=== PATIENT | female | born 1965 | race Caucasian/White ===

== ENCOUNTER 2016-05-14 10:41 | Observation (INO) | payer OTHER ==
[~2016-05-14] VITALS: Ht 157.5 cm; Wt 91.6 kg
[2016-05-14] MEDS ORDERED: NAPR-1169 PO (11:00)
[2016-05-14] MEDS ORDERED: CYAN500T PO (11:01)
[2016-05-14] MEDS ORDERED: ASCA500 PO (11:01)
[2016-05-14] MEDS ORDERED: ASPIRIN 324 MG CHEW PO STA (11:07)
[2016-05-14 11:20] LABS: BASO % 0.3 %; BASO ABS # 0.02 K/uL (0-0.2); COMPLETE YES; EOS % 2.7 %; IG% 0.5 %; LYMPH % 23.5 %; LYMPH ABS # 1.46 K/uL (1.2-3.4); MEAN CELL VOLUME 89.8 fL (80-100); MEAN CORPUSCULAR HEMOGLOBIN 29.9 pg (25-34); MEAN CORPUSCULAR HGB CONC 33.3 g/dl (32-36); MEAN PLATELET VOLUME 9.8 fL (7.4-10.4); MONO % 7.6 %; NEUT % 65.4 %; PLATELET COUNT 302 K/uL (130-400); RED BLOOD COUNT 4.79 M/uL (4.2-5.4)
[2016-05-14 11:28] LABS: BLOOD UREA NITROGEN 15 mg/dl (7-18); CALCIUM 9.1 mg/dl (8.5-10.1); CARBON DIOXIDE 29 mmol/L (21-32); CHLORIDE 105 mmol/L (98-107); CREATININE 0.74 mg/dl (0.60-1.20); GLUCOSE 129 mg/dl (70-99); POTASSIUM 3.6 mmol/L (3.5-5.1); SODIUM 143 mmol/L (136-145)
[2016-05-14 11:32] LABS: PARTIAL THROMBOPLASTIN RATIO 1.1; PROTHROMBIN TIME (PATIENT) 10.4 SECONDS (9.0-12.0)
--- NOTE | 2016-05-14 11:50 | DIAGNOSTIC IMAGING REPORT ---
CHEST 2 VIEWS ROUTINE HISTORY: exertional dyspnea COMPARISON: None. FINDINGS: The lungs are clear. Cardiac silhouette is normal in size. No pleural effusions. No pneumothorax. IMPRESSION: No acute process. Electronically signed by: Kun Tyson M.D. 05/14/2016 11:48 AM Dictated Date/Time: 05/14/2016 11:45 AM
[2016-05-14] MEDS ORDERED: OPTIRAY 320 IV PRN (12:00)
--- NOTE | 2016-05-14 12:41 | DIAGNOSTIC IMAGING REPORT ---
CHEST CTA for PULMONARY ARTERIES CT DOSE: 510.24 mGy.cm HISTORY: Atypical chest pain and exertional dyspnea. TECHNIQUE: Multiaxial CT images of the chest were performed following the intravenous administration of contrast to evaluate the pulmonary arteries. Maximal intensity projection images were also obtained. COMPARISON STUDY: Chest 05/14/2016 FINDINGS: There is a normal caliber thoracic aorta with no evidence for dissection. There is no evidence for pulmonary embolus. Trace right pleural effusion.. No pneumothorax. The liver and spleen are unremarkable. No mediastinal or hilar lymphadenopathy. The central airways are patent. There is a 7 mm slightly lobular nodule within the right lower lobe on image 7. This is difficult to characterize due to its small size but may contain fat. There is a 3 mm hypodense nodule within the left thyroid lobe. IMPRESSION: 1. No evidence for pulmonary embolus. 2. Trace right pleural effusion. 3. A 7 mm lobular nodule within the right lower lobe. This may contain a small amount of fat but is difficult to characterize due to its small size. Therefore, this could represent a benign hamartoma. However, recommend follow-up according to the chart below. Please refer to below summary of Fleischner criteria recommendations for follow-up of incidental CT nodules (Jahaira Garcia, Guidelines for management of small pulmonary nodules detected on CT scans: A statement from the Fleischner Society, Radiology 237: [phone].) Low Risk Patient: Minimal or no smoking or other known risk factors for malignancy <=4 mm: No follow-up needed. >4-6 mm: Initial follow-up CT at 12 months; if unchanged, no further follow-up. >6-8 mm: Initial follow-up CT at 6-12 months then at 18-24 months if no change. >8 mm: Follow-up CT at \R\3, 9, 24 months, or PET and/or biopsy. High Risk Patient: History of smoking or other known risk factors <=4 mm: Follow-up at 12 months; if unchanged, no further follow-up. >4-6 mm: Initial follow-up CT at 6-12 months then at 18-24 months if no change. >6-8 mm: Initial follow-up CT at 3-6 months then at 9-12 and 24 months if no change. >8 mm: Same as low risk patient. Note: Nodule size measured as average of length and width. Ground glass or partly solid nodules may require longer follow-up to exclude indolent adenocarcinoma. Electronically signed by: Kun Tyson M.D. 05/14/2016 12:39 PM Dictated Date/Time: 05/14/2016 12:26 PM
--- NOTE | 2016-05-14 12:53 | EMERGENCY ROOM VISIT NOTE ---
History Report prepared by Woodrow: Liane Delgado Under the Supervision of: Dr. Anthony Navas M.D. First contact with patient: 11:02 Chief Complaint: CHEST PAIN Stated Complaint: CHEST PAIN Nursing Triage Summary: having burning in chest. started on . denies any shortness of breath at this time. denies radiation of the pain History of Present Illness The patient is a 50 year old female who presents to the Emergency Room with complaints of intermittent chest pain for the past 3 days. She was doing a lot of heavy lifting outside 3 days ago and started to have burning chest pain. She has continued to have burning in her chest since then but notes her pain to be worse with exertion. She rates her pain as a 6/10 in severity. The patient was also experiencing some shortness of breath. She has never had a stress test. She called a Tele-nurse and was advised to come to the ED for further evaluation. Source of History: patient Onset: 3 days ago Position: chest Symptom Intensity: 6/10 Quality: burning Timing: intermittent Modifying Factors (Worsening): exertion Associated Symptoms: + SOB Review of Systems See HPI for pertinent positives & negatives. A total of 10 systems reviewed and were otherwise negative. Past Medical & Surgical Medical Problems: (1) Chest pain (2) Costochondritis Surgical Problems: (1) History of removal of ovarian cyst (2) History of tonsillectomy and adenoidectomy Family History FH: heart disease Social History Smoking Status: Never Smoker Smokeless Tobacco Use: No Alcohol Use: none Housing Status: lives with family Current/Historical Medications Scheduled Ascorbic Acid (Vitamin C), 500 MG PO DAILY Cyanocobalamin (Vitamin B-12), 500 MCG PO DAILY Scheduled PRN Naproxen (Naprosyn), 500 MG PO BID PRN for PRN Allergies Coded Allergies: Sulfa Drugs (Verified Allergy, Intermediate, RASH, 05/14/16) Lanolin (Unverified Allergy, Unknown, UNKNOWN, 05/14/16) Physical Exam Vital Signs Date Time Temp Pulse Resp B/P Pulse Ox O2 Delivery O2 Flow Rate FiO2 05/14/16 14:21 82 24 142/85 98 Room Air 05/14/16 12:29 74 18 152/81 98 05/14/16 10:58 99 05/14/16 10:51 98 Room Air 05/14/16 10:50 96 Room Air 05/14/16 10:43 36.8 101 18 157/95 96 Room Air Physical Exam CONSTITUTIONAL: The patient is mildly anxious appearing. HEENT: No icterus, moist mucous membranes NECK: No meningismus, trachea is midline. CARDIOVASCULAR: Regular rate, normal perfusion RESPIRATORY: Unlabored breathing. Clear to auscultation. GASTROINTESTINAL: Non-tender GENITOURINARY: No flank tenderness MUSCULOSKELETAL: Full range of motion NEUROLOGIC: No acute gross focal deficits. PSYCHIATRIC: Normal affect SKIN: Normal for ethnicity. Medical Decision & Procedures ER Provider Diagnostic Interpretation: Radiology results as stated below per my review and radiologist interpretation. CHEST 2 VIEWS ROUTINE HISTORY: exertional dyspnea COMPARISON: None. FINDINGS: The lungs are clear. Cardiac silhouette is normal in size. No pleural effusions. No pneumothorax. IMPRESSION: No acute process. Electronically signed by: Kun Tyson M.D. 05/14/2016 11:48 AM Dictated Date/Time: 05/14/2016 11:45 AM CHEST CTA for PULMONARY ARTERIES CT DOSE: 510.24 mGy.cm HISTORY: Atypical chest pain and exertional dyspnea. TECHNIQUE: Multiaxial CT images of the chest were performed following the intravenous administration of contrast to evaluate the pulmonary arteries. Maximal intensity projection images were also obtained. COMPARISON STUDY: Chest 05/14/2016 FINDINGS: There is a normal caliber thoracic aorta with no evidence for dissection. There is no evidence for pulmonary embolus. Trace right pleural effusion.. No pneumothorax. The liver and spleen are unremarkable. No mediastinal or hilar lymphadenopathy. The central airways are patent. There is a 7 mm slightly lobular nodule within the right lower lobe on image 7. This is difficult to characterize due to its small size but may contain fat. There is a 3 mm hypodense nodule within the left thyroid lobe. IMPRESSION: 1. No evidence for pulmonary embolus. 2. Trace right pleural effusion. 3. A 7 mm lobular nodule within the right lower lobe. This may contain a small amount of fat but is difficult to characterize due to its small size. Therefore, this could represent a benign hamartoma. However, recommend follow-up according to the chart below. Please refer to below summary of Fleischner criteria recommendations for follow-up of incidental CT nodules (Jahaira Garcia, Guidelines for management of small pulmonary nodules detected on CT scans: A statement from the Fleischner Society, Radiology 237: [phone].) Low Risk Patient: Minimal or no smoking or other known risk factors for malignancy <=4 mm: No follow-up needed. >4-6 mm: Initial follow-up CT at 12 months; if unchanged, no further follow-up. >6-8 mm: Initial follow-up CT at 6-12 months then at 18-24 months if no change. >8 mm: Follow-up CT at \R\3, 9, 24 months, or PET and/or biopsy. High Risk Patient: History of smoking or other known risk factors <=4 mm: Follow-up at 12 months; if unchanged, no further follow-up. >4-6 mm: Initial follow-up CT at 6-12 months then at 18-24 months if no change. >6-8 mm: Initial follow-up CT at 3-6 months then at 9-12 and 24 months if no change. >8 mm: Same as low risk patient. Note: Nodule size measured as average of length and width. Ground glass or partly solid nodules may require longer follow-up to exclude indolent adenocarcinoma. Electronically signed by: Kun Tyson M.D. 05/14/2016 12:39 PM Laboratory Results 05/14/16 10:55 Red Blood Count 4.79, Mean Corpuscular Volume 89.8, Mean Corpuscular Hemoglobin 29.9, Mean Corpuscular Hemoglobin Concent 33.3, Mean Platelet Volume 9.8, Neutrophils (%) (Auto) 65.4, Lymphocytes (%) (Auto) 23.5, Monocytes (%) (Auto) 7.6, Eosinophils (%) (Auto) 2.7, Basophils (%) (Auto) 0.3, Neutrophils # (Auto) 4.05, Lymphocytes # (Auto) 1.46, Monocytes # (Auto) 0.47, Eosinophils # (Auto) 0.17, Basophils # (Auto) 0.02 05/14/16 10:55 Test 05/14/16 10:55 White Blood Count 6.20 K/uL (4.8-10.8) Red Blood Count 4.79 M/uL (4.2-5.4) Hemoglobin 14.3 g/dL (12.0-16.0) Hematocrit 43.0 % (37-47) Mean Corpuscular Volume 89.8 fL (80-100) Mean Corpuscular Hemoglobin 29.9 pg (25-34) Mean Corpuscular Hemoglobin Concent 33.3 g/dl (32-36) Platelet Count 302 K/uL (130-400) Mean Platelet Volume 9.8 fL (7.4-10.4) Neutrophils (%) (Auto) 65.4 % Lymphocytes (%) (Auto) 23.5 % Monocytes (%) (Auto) 7.6 % Eosinophils (%) (Auto) 2.7 % Basophils (%) (Auto) 0.3 % Neutrophils # (Auto) 4.05 K/uL (1.4-6.5) Lymphocytes # (Auto) 1.46 K/uL (1.2-3.4) Monocytes # (Auto) 0.47 K/uL (0.11-0.59) Eosinophils # (Auto) 0.17 K/uL (0-0.5) Basophils # (Auto) 0.02 K/uL (0-0.2) RDW Standard Deviation 46.1 fL (36.4-46.3) RDW Coefficient of Variation 14.1 % (11.5-14.5) Immature Granulocyte % (Auto) 0.5 % Immature Granulocyte # (Auto) 0.03 K/uL (0.00-0.02) Prothrombin Time 10.4 SECONDS (9.0-12.0) Prothromb Time International Ratio 1.0 (0.9-1.1) Activated Partial Thromboplast Time 28.6 SECONDS (21.0-31.0) Partial Thromboplastin Ratio 1.1 D-Dimer 1370 ug/L FEU (0-500) Anion Gap 9.0 mmol/L (3-11) Est Creatinine Clear Calc Drug Dose 97.3 ml/min Estimated GFR () 110.3 Estimated GFR (Non- 95.1 BUN/Creatinine Ratio 20.0 (10-20) Calcium Level 9.1 mg/dl (8.5-10.1) Troponin I < 0.015 ng/ml (0-0.045) Labs reviewed by ED physician. Medications Administered Medications (Trade) Dose Ordered Sig/Santy Route Start Time Stop Time Status Last Admin Dose Admin Aspirin (Aspirin Chew) 324 mg NOW STAT PO 1/8/17 11:07 05/14/16 11:09 DC 05/14/16 11:23 324 MG ECG Indication: chest pain, SOB/dyspnea Rate (beats per minute): 97 Rhythm: normal sinus Findings: nonspecific-ST abn, other (normal axis) ED Course 1102: Past medical records reviewed. The patient was evaluated in room B5. A complete history and physical examination was performed. 1107: Aspirin 324 mg PO 1252: I reassessed the patient at this time. She is feeling better and resting comfortably. I discussed the results and treatment plan with the patient. I answered all pertaining questions that she had. She expressed understanding and verbalized agreement. 1349: I spoke with Ivy Goss PA-C. We discussed the patients results and treatment plan. [facility]. Medical Decision Differential diagnoses includes coronary artery disease, anemia. 50-year-old female presents into the emergency room and prompting of tele- nursing for evaluation of exertional dyspnea acute on chronic for the last several days. She does have a considerable family history for coronary artery disease does not smoke cigarettes. She denies any chest pain, nausea or diaphoresis. She has never had a cardiology evaluation nor stress test. Given the concern over exertional dyspnea in the context of a family history for coronary artery disease decision made to keep observation and admission arranged with hospitalist service. During her ED course she was noted to have an elevated d-dimer for which subsequent CT scan was negative for pulmonary embolus. EKG and troponin were satisfactory. Patient advised of results and in agreement with plan. Consults Time Called: 1346 Consulting Physician: Ivy Goss PA-C Returned Call: 1347 I spoke with Ivy oGss PA-C. We discussed the patients results and treatment plan. [facility]. Impression Primary Impression: Exertional dyspnea Additional Impression: rule out CAD Scribe Attestation The scribe's documentation has been prepared under my direction and personally reviewed by me in its entirety. I confirm that the note above accurately reflects all work, treatment, procedures, and medical decision making performed by me. Departure Information Dispostion Being Evaluated By Hospitalist Referrals Vin Antunez M.D. (PCP) Patient Instructions A Signature Page, [facility]
--- NOTE | 2016-05-14 13:50 | Progress Note ---
Progress Note came ED to see pt for admission. She reported to me her pcp is Dr. Reilly, who is [facility], and wants to be seen by [facility] hospitalist
[2016-05-14] MEDS ORDERED: ONDANSETRON INJ 2 MG/ML 2 ML VIAL IV PRN (14:30)
[2016-05-14] MEDS ORDERED: ACETAMINOPHEN 325 MG TAB PO PRN (14:30)
[2016-05-14] MEDS ORDERED: NITROGLYCERIN 0.4 MG SL PER TAB CHARGE SL PRN (14:30)
[2016-05-14] MEDS ORDERED: NAPROXEN 250 MG TAB PO PRN (14:45)
[2016-05-14] MEDS ORDERED: IV FLUIDS COMPLETED PRN (15:00)
--- NOTE | 2016-05-14 16:06 | DIAGNOSTIC IMAGING REPORT ---
BILATERAL LOWER EXTREMITY VENOUS DOPPLER CLINICAL HISTORY: Chest pain. COMPARISON STUDY: No previous studies for comparison. TECHNIQUE: Sonography of the deep venous system of the bilateral lower extremities was performed. Compression and augmentation were evaluated. FINDINGS: The bilateral common femoral, superficial femoral and popliteal veins were compressible. Augmentation was normal. Flow was shown within the deep calf vessels. IMPRESSION: No evidence of deep venous thrombus within the bilateral lower extremities. Electronically signed by: Tremayne Hall M.D. 05/14/2016 4:04 PM Dictated Date/Time: 05/14/2016 4:03 PM
[2016-05-14 16:18] VITALS: BP 148/85; PULSE 85; TEMP 37; O2SAT 98; Ht 157.5 cm; Wt 91.6 kg
[2016-05-14 18:50] VITALS: BP 149/79; PULSE 79
[2016-05-14 18:55] VITALS: BP 149/84; PULSE 97
[2016-05-14] MEDS ORDERED: INFLUENZA VIRUS QUAD VACCINE 0.5 ML SYR IM. ONE (19:30)
[2016-05-14] MEDS ORDERED: INFLUENZA ADMINISTRATION CHARGE ONE (19:30)
[2016-05-14 20:00] VITALS: O2SAT 98
--- NOTE | 2016-05-14 20:07 | History and Physical ---
History & Physical Date & Time of Service: May 14, 2016 at 19:44 Chief Complaint: Chest Pain Primary Care Physician: Vin Antunez M.D. History of Present Illness Source: patient This is a 50 y/o female with PMHx of chronic costochondritis and other problems as outlined below who presents to the ED c/o intermittent chest pain x 3 days. Pt reports that 3 days ago she was at work doing some heavy lifting when she developed 10/10 central "burning" chest pain that did not radiate anywhere. The pain was worse with exertion and persisted for approx 3 hours before resolving completely. Sxs were assoc with SOB although she explains that since she was a young girl she has always had issues with SOB on exertion and questions whether she has exercise-induced asthma. Over the past few days patient has experienced intermittent episodes of similar chest pain sxs. She also mentions that she has been having some heart burn when she lays down at night. Pt has a history of chronic costochondritis which she typically takes naproxen 500mg BID. She explains that she does not like taking medicine so last week she tried to decrease the amount of naproxen she was using. She went a few days without using it right before she developed these chest pain sxs. Pt has a FmHx of CAD. She has never had a stress test. In the ED, pt is tachy on arrival but saturating well on room air. She is afebrile with no leukocytosis. Initial troponin is negative and EKG shows no evidence of ischemia. D-dimer elevated but CT chest negative for PE. Pt received ASA in the ED and is till c/o 5/10 "achy" chest pain. She will be admitted for further evaluation and treatment. 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) Allergies Coded Allergies: Sulfa Drugs (Verified Allergy, Intermediate, RASH, 05/14/16) Lanolin (Unverified Allergy, Unknown, UNKNOWN, 05/14/16) Home Medications Scheduled Ascorbic Acid (Vitamin C), 500 MG PO DAILY Cyanocobalamin (Vitamin B-12), 500 MCG PO DAILY Scheduled PRN Naproxen (Naprosyn), 500 MG PO BID PRN for PRN Review of Systems Constitutional: No chills, No fatigue, No fever, No sweats, No weakness Eyes: No worsening of vision ENT: No hearing loss Respiratory: + dyspnea on exertion, + shortness of breath, No cough, No dyspnea at rest Cardiovascular: + chest pain, No claudication, No edema, No palpitations Abdomen: No constipation, No diarrhea Musculoskeletal: No calf pain, No swelling Genitourinary - Female: No dysuria Neurologic: No weakness Psychiatric: No depression symptoms Endocrine: No fatigue Hematologic / Lymphatic: No abnormal bleeding/bruising Integumentary: No new/changing skin lesions Physical Exam Vital Signs Date Time Temp Pulse Resp B/P Pulse Ox O2 Delivery O2 Flow Rate FiO2 05/14/16 18:55 97 149/84 05/14/16 18:50 79 149/79 05/14/16 16:18 37.0 85 17 148/85 98 Room Air 05/14/16 14:21 82 24 142/85 98 Room Air 05/14/16 12:29 74 18 152/81 98 05/14/16 10:58 99 05/14/16 10:51 98 Room Air 05/14/16 10:50 96 Room Air 05/14/16 10:43 36.8 101 18 157/95 96 Room Air General Appearance: WD/WN, no apparent distress, + obese, + pertinent finding ( Pt is laying in bed with daughter and son at bedside ) Head: normocephalic, atraumatic Eyes: normal inspection ENT: hearing grossly normal Neck: supple Respiratory/Chest: lungs clear, normal breath sounds, no respiratory distress, + pertinent finding (tenderness to palpation of chest ) Cardiovascular: regular rate, rhythm, no edema, no murmur Abdomen/GI: normal bowel sounds, non tender, soft Back: normal inspection Extremities/Musculoskelatal: normal inspection, no calf tenderness, no pedal edema Neurologic/Psych: alert, normal mood/affect, oriented x 3 Skin: normal color, warm/dry Diagnostics Laboratory Results Results Past 24 Hours Test 05/14/16 10:55 05/14/16 16:55 Range/Units White Blood Count 6.20 4.8-10.8 K/uL Red Blood Count 4.79 4.2-5.4 M/uL Hemoglobin 14.3 12.0-16.0 g/dL Hematocrit 43.0 37-47 % Mean Corpuscular Volume 89.8 80-100 fL Mean Corpuscular Hemoglobin 29.9 25-34 pg Mean Corpuscular Hemoglobin Concent 33.3 32-36 g/dl Platelet Count 302 130-400 K/uL Mean Platelet Volume 9.8 7.4-10.4 fL Neutrophils (%) (Auto) 65.4 % Lymphocytes (%) (Auto) 23.5 % Monocytes (%) (Auto) 7.6 % Eosinophils (%) (Auto) 2.7 % Basophils (%) (Auto) 0.3 % Neutrophils # (Auto) 4.05 1.4-6.5 K/uL Lymphocytes # (Auto) 1.46 1.2-3.4 K/uL Monocytes # (Auto) 0.47 0.11-0.59 K/uL Eosinophils # (Auto) 0.17 0-0.5 K/uL Basophils # (Auto) 0.02 0-0.2 K/uL RDW Standard Deviation 46.1 36.4-46.3 fL RDW Coefficient of Variation 14.1 11.5-14.5 % Immature Granulocyte % (Auto) 0.5 % Immature Granulocyte # (Auto) 0.03 0.00-0.02 K/uL Prothrombin Time 10.4 9.0-12.0 SECONDS Prothromb Time International Ratio 1.0 0.9-1.1 Activated Partial Thromboplast Time 28.6 21.0-31.0 SECONDS Partial Thromboplastin Ratio 1.1 D-Dimer 1370 0-500 ug/L FEU Sodium Level 143 136-145 mmol/L Potassium Level 3.6 3.5-5.1 mmol/L Chloride Level 105 98-107 mmol/L Carbon Dioxide Level 29 21-32 mmol/L Anion Gap 9.0 3-11 mmol/L Blood Urea Nitrogen 15 7-18 mg/dl Creatinine 0.74 0.60-1.20 mg/dl Est Creatinine Clear Calc Drug Dose 97.3 ml/min Estimated GFR () 110.3 Estimated GFR (Non- 95.1 BUN/Creatinine Ratio 20.0 10-20 Random Glucose 129 70-99 mg/dl Calcium Level 9.1 8.5-10.1 mg/dl Troponin I < 0.015 < 0.015 0-0.045 ng/ml Creatine Kinase MB 1.1 0.5-3.6 ng/ml Creatine Kinase MB Ratio 0-3.[address] CHEST IMPRESSION: 1. No evidence for pulmonary embolus. 2. Trace right pleural effusion. 3. A 7 mm lobular nodule within the right lower lobe. This may contain a small amount of fat but is difficult to characterize due to its small size. Therefore, this could represent a benign hamartoma. However, recommend follow-up according to the chart below. CXR IMPRESSION: No acute process. EKG EKG: NSR at 97 bpm with no acute ischemic changes noted; no previous EKG available for comparison Impression Assessment and Plan ATYPICAL CHEST PAIN R/O ACS pt presents with exertional chest pain that does not radiate assoc with SOB -observation status to telemetry -less likley cardiac; more likely costochondritis vs. reflux -RFs include +FmHx and obesity -EKG no ischemic change; repeat EKG PRN chest pain and in AM -Initial troponin is negative; continue to monitor with serial cardiac enzymes q6h -obtain echo to r/o cardiac wall motion abnormalities -start ASA -start trial Protonix -cont naproxen -consider cardiology consult if findings are abnormal -pt is currently c/o 5/10 chest pain -continue to monitor ELEVATED D-DIMER R/O PE/DVT -ddimer >1300 -CT chest negative for PE -obtain bilat LE US to r/o DVT LUNG NODULE -CT chest + 7 mm lobular nodule within the right lower lobe -recommend f/u CT chest in 6-12 months COSTOCHONDRITIS -may be contributing to chest discomfort -cont naproxen DVT PROPHYLAXIS -subq Lovenox CODE STATUS -FULL CODE status DISPO Observation status until further workup is complete. Pt seen in collaboration with Dr. Silva. Please see his addendum for further details. Thanks! Pt was seen and examined. Agree with Ivy's DANY exam, assessment and Plan. 50 y /o female with PMHx of chronic costochondritis presents to the ED c/o intermittent chest pain for the past few days. she said she was doing some heavy lifting when she developed non radiated, reproducible chest pain. General- no acute distress Head- atraumatic Eyes- PERRL, EOMI ENT- oropharynx clear Neck- supple, no JVD Lungs- clear to auscultation and percussion Heart- regular rhythm; no murmur Abdomen- normal bowel sounds, soft, nontender Extremities- no calf tenderness A/p CHEST PAIN Possible atypical Need to R/O ACS will monitor in telemetry EKG showed no significant ST change 1set CM negative, will follow 2 more sets Will get an echo in am start on aspirin Lab, EKG, imaging reviewed Please refer to Ivy's PA documentation for other problems Ximena Silva MD Advanced Directives Existing Advance Directive: No Existing Living Will: No Existing Power of Travel Services Professional: No VTE Prophylaxis VTE Risk Assessment Done? Y/N: Yes Risk Level: Moderate
[2016-05-14] MEDS ORDERED: ENOXAPARIN 40 MG/0.4 ML SYR SC SCH (21:00)
[2016-05-14 22:24] VITALS: BP 122/73; PULSE 69; TEMP 36.8; O2SAT 98
[2016-05-14 23:24] VITALS: BP 122/73; PULSE 69; TEMP 36.8; O2SAT 98
[2016-05-15] VITALS (8 sets, daily range): BP systolic 125–133; BP diastolic 77–82; PULSE 66–80; TEMP 36.5–36.9; O2SAT 98–99
[2016-05-15 07:29] LABS: HEMATOCRIT 40.8 % (37-47); MEAN CELL VOLUME 90.7 fL (80-100); MEAN CORPUSCULAR HEMOGLOBIN 29.8 pg (25-34); MEAN CORPUSCULAR HGB CONC 32.8 g/dl (32-36); MEAN PLATELET VOLUME 9.9 fL (7.4-10.4); PLATELET COUNT 279 K/uL (130-400); WHITE BLOOD COUNT 5.31 K/uL (4.8-10.8)
[2016-05-15 07:57] LABS: CALCIUM 8.8 mg/dl (8.5-10.1); CREATININE 0.62 mg/dl (0.60-1.20); POTASSIUM 3.8 mmol/L (3.5-5.1)
[2016-05-15] MEDS ORDERED: CYANOCOBALAMIN 500 MCG TAB (VIT B-12) PO SCH (09:00)
[2016-05-15] MEDS ORDERED: ASPIRIN 81 MG ECTAB PO SCH (09:00)
[2016-05-15] MEDS ORDERED: PANTOprazole SOD 40 MG TAB PO SCH (09:00)
[2016-05-15] MEDS ORDERED: ASCORBIC ACID 500 MG TAB PO SCH (09:00)
--- NOTE | 2016-05-15 10:26 | ECHOCARDIOGRAM REPORT ---
*NOTICE TO RECEIVING CONSTITUTION PARTY AGENCY This information is strictly Confidential and protected under [place] law. [place] law prohibits you from making any further disclosure of this information unless further disclosure is expressly permitted by the written consent of the person to whom it pertains or is authorized by law. A general authorization for the release of medical or other information is not sufficient for this purpose. Hospital accepts no responsibility if the information is made available to any other person, INCLUDING THE PATIENT. Interpretation Summary * Name: MONA BOWMAN Study Date: 05/15/2016 07:36 AM BP: 133/82 mmHg * Patient Location: C.2T\S\S241\S\2 HR: 69 * : 1965 (M/d/yyyy) Gender: Female Height: 62 in * Age: 50 yrs Ethnicity: [place] Weight: 203 lb * Ordering Physician: Ivy Soto * Referring Physician: Self, Referred * Performed By: Sho Amaya RCS * * Reason For Study: CHEST PAIN * BSA: 1.9 m2 * -- Conclusions -- * Technically limited study. * The left ventricle is normal in size. * There is mild concentric left ventricular hypertrophy. * Ejection Fraction = 55-60%. * The left ventricular wall motion is normal. * No significant valvular pathology. Procedure Details * A complete two-dimensional transthoracic echocardiogram was performed (2D, M-mode, Doppler and color flow Doppler). Left Ventricle * The left ventricle is normal in size. * There is mild concentric left ventricular hypertrophy. * Ejection Fraction = 55-60%. * Left ventricular systolic function is normal. * The left ventricular wall motion is normal. Right Ventricle * The right ventricle is normal size. * The right ventricular systolic function is normal. Atria * The left atrial size is normal. * Right atrial size is normal. * There is no Doppler evidence for an atrial septal defect. * No ASD detected; PFO is not assessed. Mitral Valve * The mitral valve is grossly normal. * Significant mitral regurgitation is absent. Tricuspid Valve * The tricuspid valve is not well visualized. * Significant tricuspid regurgitation is absent. Aortic Valve * The aortic valve is normal in structure and function. Pulmonic Valve * The pulmonic valve is not well visualized. * There is no significant pulmonary regurgitation. Great Vessels * The aortic root and proximal ascending aorta are normal sized. Pericardium/Pleural * There is no pericardial effusion. MMode 2D Measurements and Calculations IVSd 1.3 cm IVSs 1.4 cm LVIDd 4.0 cm LVIDs 3.1 cm LVPWd 1.2 cm LVPWs 1.3 cm IVS/LVPW 1.1 FS 22.4 % EDV(Teich) 68.8 ml ESV(Teich) 37.3 ml EF(Teich) 45.8 % EDV(cubed) 62.6 ml ESV(cubed) 29.2 ml EF(cubed) 53.4 % % IVS thick 7.4 % % LVPW thick 8.9 % LV mass(C)d 176.0 grams LV mass(C)dI 91.5 grams/m\S\2 LV mass(C)s 138.9 grams LV mass(C)sI 72.2 grams/m\S\2 SV(Teich) 31.5 ml SI(Teich) 16.4 ml/m\S\2 SV(cubed) 33.4 ml SI(cubed) 17.4 ml/m\S\2 Ao root diam 3.3 cm Ao root area 8.3 cm\S\2 LA dimension 3.8 cm LA/Ao 1.2 LVOT diam 2.0 cm LVOT area 3.0 cm\S\2 LVAd ap4 27.4 cm\S\2 LVLd ap4 8.2 cm EDV(MOD-sp4) 76.5 ml EDV(sp4-el) 77.9 ml LVAs ap4 16.4 cm\S\2 LVLs ap4 6.5 cm ESV(MOD-sp4) 35.2 ml ESV(sp4-el) 35.0 ml EF(MOD-sp4) 54.0 % EF(sp4-el) 55.0 % LVAd ap2 33.0 cm\S\2 LVLd ap2 8.5 cm EDV(MOD-sp2) 108.7 ml EDV(sp2-el) 108.6 ml LVAs ap2 18.7 cm\S\2 LVLs ap2 6.6 cm ESV(MOD-sp2) 44.9 ml ESV(sp2-el) 45.0 ml EF(MOD-sp2) 58.7 % EF(sp2-el) 58.6 % LVLd %diff 4.2 % EDV(MOD-bp) 92.3 ml LVLs %diff 0.30 % ESV(MOD-bp) 39.8 ml EF(MOD-bp) 56.9 % SV(MOD-sp4) 41.4 ml SI(MOD-sp4) 21.5 ml/m\S\2 SV(MOD-sp2) 63.8 ml SI(MOD-sp2) 33.2 ml/m\S\2 SV(MOD-bp) 52.5 ml SI(MOD-bp) 27.3 ml/m\S\2 SV(sp4-el) 42.8 ml SI(sp4-el) 22.3 ml/m\S\2 SV(sp2-el) 63.7 ml SI(sp2-el) 33.1 ml/m\S\2 Doppler Measurements and Calculations MV E max carla 97.1 cm/sec MV A max carla 70.6 cm/sec MV E/A 1.4 MV P1/2t max carla 106.1 cm/sec MV P1/2t 81.3 msec MVA(P1/2t) 2.7 cm\S\2 MV dec slope 382.2 cm/sec\S\2 MV dec time 0.23 sec Ao V2 max 107.0 cm/sec Ao max PG 4.6 mmHg Ao max PG (full) 2.3 mmHg BUSHRA(V,A) 2.1 cm\S\2 BUSHRA(V,D) 2.1 cm\S\2 LV V1 max PG 2.3 mmHg LV V1 max 75.7 cm/sec
--- NOTE | 2016-05-15 15:40 | Progress Note ---
Medicine Progress Note Date & Time of Visit: May 15, 2016 at 15:23. Subjective Pt was seen and examined Lying in bed comfortable with no distress Pt said that she feels fine she does walk in the hallway with no distress or chest pain She denies any chest pain, palpitation and shortness of breath at this time Objective Last 8 Hrs Date Time Temp Pulse Resp B/P Pulse Ox O2 Delivery O2 Flow Rate FiO2 05/15/16 15:07 36.6 74 18 98 Room Air 05/15/16 12:00 Room Air 05/15/16 11:56 36.6 74 18 125/82 98 Room Air 05/15/16 11:40 99 Room Air 05/15/16 08:09 36.5 66 18 133/81 99 Nasal Cannula 2.0 05/15/16 08:00 Room Air Physical Exam: General- anxious, obese Head- atraumatic Eyes- PERRL, EOMI ENT- oropharynx clear Neck- supple, no JVD Lungs- clear to auscultation and percussion Heart- regular rhythm; no murmur Abdomen- normal bowel sounds, soft Extremities- no pretibial edema, no calf tenderness Neuro- alert, oriented x3; PERRL, EOMI Skin- warm & dry Laboratory Results: Last 24 Hours Test 05/14/16 16:55 05/14/16 23:00 05/14/16 23:10 05/15/16 06:57 Creatine Kinase MB 1.1 ng/ml 0.7 ng/ml Creatine Kinase MB Ratio Troponin I < 0.015 ng/ml < 0.015 ng/ml White Blood Count 5.31 K/uL Red Blood Count 4.50 M/uL Hemoglobin 13.4 g/dL Hematocrit 40.8 % Mean Corpuscular Volume 90.7 fL Mean Corpuscular Hemoglobin 29.8 pg Mean Corpuscular Hemoglobin Concent 32.8 g/dl RDW Standard Deviation 48.0 fL RDW Coefficient of Variation 14.4 % Platelet Count 279 K/uL Mean Platelet Volume 9.9 fL Sodium Level 142 mmol/L Potassium Level 3.8 mmol/L Chloride Level 106 mmol/L Carbon Dioxide Level 26 mmol/L Anion Gap 10.0 mmol/L Blood Urea Nitrogen 19 mg/dl Creatinine 0.62 mg/dl Est Creatinine Clear Calc Drug Dose 115.6 ml/min Estimated GFR () 122.7 Estimated GFR (Non- 105.9 BUN/Creatinine Ratio 30.0 Random Glucose 113 mg/dl Calcium Level 8.8 mg/dl Assessment & Plan CHEST PAIN Mostly atypical chest pain -admitted under observation to r/o ACS -less likley cardiac; more likely costochondritis vs. reflux -Risk factors family hx and obesity -all 3 sets CM are negative -EKG on admission and repeat EKG today showed no ST changes Echo The left ventricle is normal in size. * There is mild concentric left ventricular hypertrophy. * Ejection Fraction = 55-60%. * The left ventricular wall motion is normal. * No significant valvular pathology. -start ASA -start trial Protonix Continue Naproxen prn for pain Will need to schedule for stress test in future, can be arranged by PCP ELEVATED D-DIMER R/O PE/DVT -ddimer >1300 -CT chest negative for PE - Venous doppler of LE negative LUNG NODULE -CT chest + 7 mm lobular nodule within the right lower lobe -recommend f/u CT chest in 6-12 months for stability COSTOCHONDRITIS -may be contributing to chest discomfort -cont naproxen DVT PROPHYLAXIS -subq Lovenox CODE STATUS FULL CODE Procedures: CHEST 2 VIEWS ROUTINE HISTORY: exertional dyspnea COMPARISON: None. FINDINGS: The lungs are clear. Cardiac silhouette is normal in size. No pleural effusions. No pneumothorax. IMPRESSION: No acute process. Electronically signed by: Kun Tyson M.D. CHEST CTA for PULMONARY ARTERIES CT DOSE: 510.24 mGy.cm HISTORY: Atypical chest pain and exertional dyspnea. TECHNIQUE: Multiaxial CT images of the chest were performed following the intravenous administration of contrast to evaluate the pulmonary arteries. Maximal intensity projection images were also obtained. COMPARISON STUDY: Chest 05/14/2016 FINDINGS: There is a normal caliber thoracic aorta with no evidence for dissection. There is no evidence for pulmonary embolus. Trace right pleural effusion.. No pneumothorax. The liver and spleen are unremarkable. No mediastinal or hilar lymphadenopathy. The central airways are patent. There is a 7 mm slightly lobular nodule within the right lower lobe on image 7. This is difficult to characterize due to its small size but may contain fat. There is a 3 mm hypodense nodule within the left thyroid lobe. IMPRESSION: 1. No evidence for pulmonary embolus. 2. Trace right pleural effusion. 3. A 7 mm lobular nodule within the right lower lobe. This may contain a small amount of fat but is difficult to characterize due to its small size. Therefore, this could represent a benign hamartoma. However, recommend follow-up according to the chart below. Please refer to below summary of Fleischner criteria recommendations for follow-up of incidental CT nodules (Jahaira Garcia, Guidelines for management of small pulmonary nodules detected on CT scans: A statement from the Fleischner Society, Radiology 237: [phone].) Low Risk Patient: Minimal or no smoking or other known risk factors for malignancy <=4 mm: No follow-up needed. >4-6 mm: Initial follow-up CT at 12 months; if unchanged, no further follow-up. >6-8 mm: Initial follow-up CT at 6-12 months then at 18-24 months if no change. >8 mm: Follow-up CT at \R\3, 9, 24 months, or PET and/or biopsy. High Risk Patient: History of smoking or other known risk factors <=4 mm: Follow-up at 12 months; if unchanged, no further follow-up. >4-6 mm: Initial follow-up CT at 6-12 months then at 18-24 months if no change. >6-8 mm: Initial follow-up CT at 3-6 months then at 9-12 and 24 months if no change. >8 mm: Same as low risk patient. Note: Nodule size measured as average of length and width. Ground glass or partly solid nodules may require longer follow-up to exclude indolent adenocarcinoma. Electronically signed by: Kun Tyson M.D. ECHO Interpretation Summary * Name: MONA BOWMAN Study Date: 05/15/2016 07:36 AM BP: 133/82 mmHg * Patient Location: C.2T\S\S241\S\2 HR: 69 * : 1965 (M/d/yyyy) Gender: Female Height: 62 in * Age: 50 yrs Ethnicity: [place] Weight: 203 lb * Ordering Physician: Ivy Soto * Referring Physician: Self, Referred * Performed By: Sho Amaya RCS * * Reason For Study: CHEST PAIN * BSA: 1.9 m2 * -- Conclusions -- * Technically limited study. * The left ventricle is normal in size. * There is mild concentric left ventricular hypertrophy. * Ejection Fraction = 55-60%. * The left ventricular wall motion is normal. * No significant valvular pathology. Procedure Details * A complete two-dimensional transthoracic echocardiogram was performed (2D, M-mode, Doppler and color flow Doppler). Left Ventricle * The left ventricle is normal in size. * There is mild concentric left ventricular hypertrophy. * Ejection Fraction = 55-60%. * Left ventricular systolic function is normal. * The left ventricular wall motion is normal. Right Ventricle * The right ventricle is normal size. * The right ventricular systolic function is normal. Atria * The left atrial size is normal. * Right atrial size is normal. * There is no Doppler evidence for an atrial septal defect. * No ASD detected; PFO is not assessed. Mitral Valve * The mitral valve is grossly normal. * Significant mitral regurgitation is absent. Tricuspid Valve * The tricuspid valve is not well visualized. * Significant tricuspid regurgitation is absent. Aortic Valve * The aortic valve is normal in structure and function. Pulmonic Valve * The pulmonic valve is not well visualized. * There is no significant pulmonary regurgitation. Great Vessels * The aortic root and proximal ascending aorta are normal sized. Pericardium/Pleural * There is no pericardial effusion. Current Inpatient Medications: Current Inpatient Medications Medications (Trade) Dose Ordered Sig/Santy Route Start Time Stop Time Status Last Admin Dose Admin Ioversol (Optiray 320) 125 ml UD PRN IV 05/14/16 12:00 05/18/16 11:59 Enoxaparin Sodium (Lovenox Inj) 40 mg Q24H SC 05/14/16 21:00 06/13/16 20:59 05/14/16 20:44 40 MG Acetaminophen (Tylenol Tab) 650 mg Q4H PRN PO 05/14/16 14:30 06/13/16 14:29 Ondansetron HCl (Zofran Inj) 4 mg Q6H PRN IV 05/14/16 14:30 06/13/16 14:29 Nitroglycerin (Nitrostat Tab) 0.4 mg UD PRN SL 05/14/16 14:30 06/13/16 14:29 05/14/16 18:55 0.4 MG Pantoprazole Sodium (Protonix Tab) 40 mg QAM PO 05/15/16 09:00 06/14/16 08:59 05/15/16 08:18 40 MG Ascorbic Acid (Vitamin C Tab) 500 mg DAILY PO 05/15/16 09:00 06/14/16 08:59 05/15/16 08:18 500 MG Cyanocobalamin (Vitamin B-12 Tab) 500 mcg DAILY PO 05/15/16 09:00 06/14/16 08:59 05/15/16 08:18 500 MCG Naproxen (Naprosyn Tab) 500 mg BID PRN PO 05/14/16 14:45 06/13/16 14:44 05/14/16 19:36 500 MG Miscellaneous (Iv Fluids Completed) 1 ea PRN PRN N/A 05/14/16 15:00 05/14/17 14:59 Aspirin (Ecotrin Tab) 81 mg QAM PO 05/15/16 09:00 06/14/16 08:59 05/15/16 08:18 81 MG
--- NOTE | 2016-05-15 15:50 | Discharge Instructions ---
Discharge Instructions Admission Reason for Admission: Chest Pain Discharge Discharge Diagnosis / Problem: Atypical chest pain, Lung nodule Discharge Goals Goal(s): Decrease discomfort, Improve function, Improve disease control Activity Recommendations Activity Limitations: resume your previous activity . Instructions / Follow-Up Instructions / Follow-Up Follow up appointment with primary care physician Dr. Antunez on 05/31 at 9:50 am Follow up on lung nodule in 6 to 12 months Diet and exercise Current Hospital Diet Patient's current hospital diet: Regular Diet Discharge Diet Recommended Diet: AHA Diet (Heart Healthy), Low Sodium Diet (2gm Na) Pending Studies Studies pending at discharge: no Medical Emergencies . Who to Call and When: Medical Emergencies: If at any time you feel your situation is an emergency, please call 911 immediately. . Non-Emergent Contact Non-Emergency issues call your: Primary Care Provider Call Non-Emergent contact if: you have any medication questions . . "Provider Documentation" section prepared by Ximena Silva. VTE Core Measure Inpt VTE Proph given/why not?: Enoxaparin (Lovenox)SQ
--- NOTE | 2016-05-17 19:14 | Discharge Summary ---
Discharge Summary Admission Date: May 14, 2016 at 14:28 Discharge Date: May 15, 2016 Discharge Disposition: Home Principal Diagnosis: Chest pain Secondary Diagnoses/Problems: Atypical chest pain Lung nodule Procedures: CHEST 2 VIEWS ROUTINE HISTORY: exertional dyspnea COMPARISON: None. FINDINGS: The lungs are clear. Cardiac silhouette is normal in size. No pleural effusions. No pneumothorax. IMPRESSION: No acute process. Electronically signed by: Kun Tyson M.D. CHEST CTA for PULMONARY ARTERIES CT DOSE: 510.24 mGy.cm HISTORY: Atypical chest pain and exertional dyspnea. TECHNIQUE: Multiaxial CT images of the chest were performed following the intravenous administration of contrast to evaluate the pulmonary arteries. Maximal intensity projection images were also obtained. COMPARISON STUDY: Chest 05/14/2016 FINDINGS: There is a normal caliber thoracic aorta with no evidence for dissection. There is no evidence for pulmonary embolus. Trace right pleural effusion.. No pneumothorax. The liver and spleen are unremarkable. No mediastinal or hilar lymphadenopathy. The central airways are patent. There is a 7 mm slightly lobular nodule within the right lower lobe on image 7. This is difficult to characterize due to its small size but may contain fat. There is a 3 mm hypodense nodule within the left thyroid lobe. IMPRESSION: 1. No evidence for pulmonary embolus. 2. Trace right pleural effusion. 3. A 7 mm lobular nodule within the right lower lobe. This may contain a small amount of fat but is difficult to characterize due to its small size. Therefore, this could represent a benign hamartoma. However, recommend follow-up according to the chart below. Please refer to below summary of Fleischner criteria recommendations for follow-up of incidental CT nodules (Jahaira Garcia, Guidelines for management of small pulmonary nodules detected on CT scans: A statement from the Fleischner Society, Radiology 237: [phone].) Low Risk Patient: Minimal or no smoking or other known risk factors for malignancy <=4 mm: No follow-up needed. >4-6 mm: Initial follow-up CT at 12 months; if unchanged, no further follow-up. >6-8 mm: Initial follow-up CT at 6-12 months then at 18-24 months if no change. >8 mm: Follow-up CT at \\R\\3, 9, 24 months, or PET and/or biopsy. High Risk Patient: History of smoking or other known risk factors <=4 mm: Follow-up at 12 months; if unchanged, no further follow-up. >4-6 mm: Initial follow-up CT at 6-12 months then at 18-24 months if no change. >6-8 mm: Initial follow-up CT at 3-6 months then at 9-12 and 24 months if no change. >8 mm: Same as low risk patient. Note: Nodule size measured as average of length and width. Ground glass or partly solid nodules may require longer follow-up to exclude indolent adenocarcinoma. Electronically signed by: Kun Tyson M.D. ECHO Interpretation Summary * Name: MONA BOWMAN Study Date: 05/15/2016 07:36 AM BP: 133/82 mmHg * Patient Location: [facility]\\S\\S241\\S\\2 HR: 69 * : 1965 (M/d/yyyy) Gender: Female Height: 62 in * Age: 50 yrs Ethnicity: [place] Weight: 203 lb * Ordering Physician: Ivy Soto * Referring Physician: Self, Referred * Performed By: Sho Amaya RCS * * Reason For Study: CHEST PAIN * BSA: 1.9 m2 * -- Conclusions -- * Technically limited study. * The left ventricle is normal in size. * There is mild concentric left ventricular hypertrophy. * Ejection Fraction = 55-60%. * The left ventricular wall motion is normal. * No significant valvular pathology. Procedure Details * A complete two-dimensional transthoracic echocardiogram was performed (2D, M-mode, Doppler and color flow Doppler). Left Ventricle * The left ventricle is normal in size. * There is mild concentric left ventricular hypertrophy. * Ejection Fraction = 55-60%. * Left ventricular systolic function is normal. * The left ventricular wall motion is normal. Right Ventricle * The right ventricle is normal size. * The right ventricular systolic function is normal. Atria * The left atrial size is normal. * Right atrial size is normal. * There is no Doppler evidence for an atrial septal defect. * No ASD detected; PFO is not assessed. Mitral Valve * The mitral valve is grossly normal. * Significant mitral regurgitation is absent. Tricuspid Valve * The tricuspid valve is not well visualized. * Significant tricuspid regurgitation is absent. Aortic Valve * The aortic valve is normal in structure and function. Pulmonic Valve * The pulmonic valve is not well visualized. * There is no significant pulmonary regurgitation. Great Vessels * The aortic root and proximal ascending aorta are normal sized. Pericardium/Pleural * There is no pericardial effusion. Medication Reconciliation Continued Medications: Ascorbic Acid (Vitamin C) 500 Mg Tab 500 MG PO DAILY Cyanocobalamin (Vitamin B-12) 500 Mcg Tab 500 MCG PO DAILY, TAB Naproxen (Naprosyn) 500 Mg Tab 500 MG PO BID PRN for PRN, TAB Admission Information HPI (per Admitting provider): This is a 50 y/o female with PMHx of chronic costochondritis and other problems as outlined below who presents to the ED c/o intermittent chest pain x 3 days. Pt reports that 3 days ago she was at work doing some heavy lifting when she developed 10/10 central "burning" chest pain that did not radiate anywhere. The pain was worse with exertion and persisted for approx 3 hours before resolving completely. Sxs were assoc with SOB although she explains that since she was a young girl she has always had issues with SOB on exertion and questions whether she has exercise-induced asthma. Over the past few days patient has experienced intermittent episodes of similar chest pain sxs. She also mentions that she has been having some heart burn when she lays down at night. Pt has a history of chronic costochondritis which she typically takes naproxen 500mg BID. She explains that she does not like taking medicine so last week she tried to decrease the amount of naproxen she was using. She went a few days without using it right before she developed these chest pain sxs. Pt has a FmHx of CAD. She has never had a stress test. In the ED, pt is tachy on arrival but saturating well on room air. She is afebrile with no leukocytosis. Initial troponin is negative and EKG shows no evidence of ischemia. D-dimer elevated but CT chest negative for PE. Pt received ASA in the ED and is till c/o 5/10 "achy" chest pain. She will be admitted for further evaluation and treatment. Physical Exam (per Admitting): General Appearance: WD/WN, no apparent distress, + obese, + pertinent finding (Pt is laying in bed with daughter and son at bedside ) Head: normocephalic, atraumatic Eyes: normal inspection ENT: hearing grossly normal Neck: supple Respiratory/Chest: lungs clear, normal breath sounds, no respiratory distress, + pertinent finding (tenderness to palpation of chest ) Cardiovascular: regular rate, rhythm, no edema, no murmur Abdomen/GI: normal bowel sounds, non tender, soft Back: normal inspection Extremities/Musculoskelatal: normal inspection, no calf tenderness, no pedal edema Neurologic/Psych: alert, normal mood/affect, oriented x 3 Skin: normal color, warm/dry Hospital Course CHEST PAIN Mostly atypical chest pain -admitted under observation to r/o ACS -less likley cardiac; more likely costochondritis vs. reflux -Risk factors family hx and obesity -all 3 sets CM are negative -EKG on admission and repeat EKG today showed no ST changes Echo The left ventricle is normal in size. * There is mild concentric left ventricular hypertrophy. * Ejection Fraction = 55-60%. * The left ventricular wall motion is normal. * No significant valvular pathology. -start ASA -start trial Protonix Continue Naproxen prn for pain Will need to schedule for stress test in future, can be arranged by PCP ELEVATED D-DIMER R/O PE/DVT -ddimer >1300 -CT chest negative for PE - Venous doppler of LE negative LUNG NODULE -CT chest + 7 mm lobular nodule within the right lower lobe -recommend f/u CT chest in 6-12 months for stability COSTOCHONDRITIS -may be contributing to chest discomfort -cont naproxen DVT PROPHYLAXIS -subq Lovenox CODE STATUS FULL CODE Total time spent on discharge = 35 minutes This includes examination of the patient, discharge planning, medication reconciliation, and communication with other providers. Discharge Instructions Discharge Instructions Admission Reason for Admission: Chest Pain Discharge Discharge Diagnosis / Problem: Atypical chest pain, Lung nodule Discharge Goals Goal(s): Decrease discomfort, Improve function, Improve disease control Activity Recommendations Activity Limitations: resume your previous activity . Instructions / Follow-Up Instructions / Follow-Up Follow up appointment with primary care physician Dr. Antunez on 05/31 at 9:50 am Follow up on lung nodule in 6 to 12 months Diet and exercise Current Hospital Diet Patient's current hospital diet: Regular Diet Discharge Diet Recommended Diet: AHA Diet (Heart Healthy), Low Sodium Diet (2gm Na) Pending Studies Studies pending at discharge: no Medical Emergencies . Who to Call and When: Medical Emergencies: If at any time you feel your situation is an emergency, please call 911 immediately. . Non-Emergent Contact Non-Emergency issues call your: Primary Care Provider Call Non-Emergent contact if: you have any medication questions . . "Provider Documentation" section prepared by Ximena Silva. VTE Core Measure Inpt VTE Proph given/why not?: Enoxaparin (Lovenox)SQ Additional Copies To Vin Antunez M.D.
== END 2016-05-15 17:20 | disposition home or self-care (01) ==
LOC: ENRESERVTM → CANRESERV → ENRESERVDT → C.EDB 10:43 → C.2T 14:28 → EDBEDREQTM 15:35
PROVIDERS: ADMIT Internal Medicine; ATTEND Internal Medicine
DX: R07.89 Other chest pain (principal); M94.0 Chondrocostal junction syndrome [Tietze]; R91.1 Solitary pulmonary nodule

== ENCOUNTER 2017-06-01 21:09 | Emergency (ER) | payer OTHER ==
[~2017-06-01] VITALS: Ht 157.5 cm; Wt 90.0 kg
[~2017-06-01 21:09] MED LIST: ASCA500 PO; CYAN500T PO; NAPR-1169 PO
[2017-06-01 21:13] VITALS: TEMP 36.7; Ht 157.5 cm; Wt 90.0 kg
[2017-06-01] MEDS ORDERED: AMOX875T PO (22:51)
--- NOTE | 2017-06-01 22:51 | DIAGNOSTIC IMAGING REPORT ---
RIGHT KNEE 3 VIEWS HISTORY: Right knee pain COMPARISON: None. FINDINGS: There is no fracture or dislocation. Soft tissues are unremarkable. No radiopaque foreign bodies. No knee effusion. IMPRESSION: No fractures. Electronically signed by: Kun Tyson M.D. 06/01/2017 10:49 PM Dictated Date/Time: 06/01/2017 10:48 PM
[2017-06-01] MEDS ORDERED: RANI150T3 PO (23:14)
[2017-06-01] MEDS ORDERED: METH4PAK PO (23:58)
[2017-06-02 00:19] VITALS: BP 145/86; PULSE 89; O2SAT 96
--- NOTE | 2017-06-02 06:32 | DIAGNOSTIC IMAGING REPORT ---
RIGHT LOWER EXTREMITY VENOUS DOPPLER CLINICAL HISTORY: Right knee/posterior pain COMPARISON STUDY: Bilateral lower extremity venous Doppler May 14, 2016. TECHNIQUE: Sonography of the deep venous system of the right lower extremity was performed. Compression and augmentation were evaluated. FINDINGS: The right common femoral, superficial femoral and popliteal veins were compressible. Augmentation was normal. Flow was shown within the deep calf vessels. IMPRESSION: No evidence of deep venous thrombus within the right lower extremity. Electronically signed by: Tremayne Hall M.D. 06/02/2017 6:31 AM Dictated Date/Time: 06/02/2017 6:30 AM
--- NOTE | 2017-06-02 15:42 | EMERGENCY ROOM VISIT NOTE ---
History First contact with patient: 21:23 Chief Complaint: LEG PAIN,LEG INJURY Stated Complaint: RIGHT LEG PAIN History of Present Illness The patient is a 51 year old female who presents to the Emergency Room with complaints of persistently worsening right knee pain over the past few days. The patient states her symptoms worsened today as her knee locked up and is now giving out on her. She does not recall distinct injury or fall. The patient does not have a history of chronic issues with the right knee, but notes a history of left knee arthritis. She has been taking Aleve at home with some improvement of symptoms. When she lays her pain is a 1/10. When she stands or twists her pain is a 10/10. No back pain or difficulty using the bathroom. No pain in the hip or ankle. Review of Systems More than 10 systems were reviewed and otherwise negative with the exception of history of present illness. Past Medical/Surgical History Medical Problems: (1) Chest pain (2) Costochondritis Surgical Problems: (1) History of removal of ovarian cyst (2) History of tonsillectomy and adenoidectomy Family History FH: heart disease Social History Smoking Status: Never Smoker Alcohol Use: none Drug Use: none Marital Status: Housing Status: lives with family Occupation Status: employed Current/Historical Medications Scheduled Amoxicillin & Pot Clavulanate (Augmentin 875-125 mg), 1 TAB PO BID Ascorbic Acid (Vitamin C), 500 MG PO DAILY Cyanocobalamin (Vitamin B-12), 500 MCG PO DAILY Methylprednisolone (Medrol Dosepak), 1 PKT PO DAILY Ranitidine Hcl (Zantac), 1 TAB PO HS Physical Exam Vital Signs Date Time Temp Pulse Resp B/P (MAP) Pulse Ox O2 Delivery O2 Flow Rate FiO2 06/02/17 00:19 89 18 145/86 96 06/01/17 23:25 89 18 145/86 96 Room Air 06/01/17 21:13 36.7 90 18 94 Room Air Physical Exam VITALS: Vitals are noted on the nurse's note and reviewed by myself. Vital signs stable. GENERAL: Well-developed, well-nourished, white female, who is in no acute distress and resting comfortably. Patient is cooperative with the examination. HEART: Regular rate and rhythm without murmurs gallops or rubs. LUNGS: Clear to auscultation bilaterally without wheezes, rales or rhonchi. No retractions or accessory muscle use. MUSCULOSKELETAL: No muscle atrophy, erythema, or edema noted. Diffuse tenderness noted around the right knee including posteriorly and medially, which appear the most tender. There is some tenderness to the anterior and posterior right lower leg. No palpable cord. Neurovascular status is intact distally. Negative anterior/posterior drawer. No varus and valgus laxity. NEURO: Patient was alert and oriented to person place and time. CN II through XII grossly intact. No focal neurological deficits. Deep tendon reflexes 2+ throughout. SKIN: The skin was without rashes, erythema, edema, or bruising. Capillary refill less than 2 seconds. Medical Decision & Procedures ER Provider Diagnostic Interpretation: RIGHT KNEE 3 VIEWS HISTORY: Right knee pain COMPARISON: None. FINDINGS: There is no fracture or dislocation. Soft tissues are unremarkable. No radiopaque foreign bodies. No knee effusion. IMPRESSION: No fractures. RIGHT LOWER EXTREMITY VENOUS DOPPLER CLINICAL HISTORY: Right knee/posterior pain COMPARISON STUDY: Bilateral lower extremity venous Doppler May 14, 2016. TECHNIQUE: Sonography of the deep venous system of the right lower extremity was performed. Compression and augmentation were evaluated. FINDINGS: The right common femoral, superficial femoral and popliteal veins were compressible. Augmentation was normal. Flow was shown within the deep calf vessels. IMPRESSION: No evidence of deep venous thrombus within the right lower extremity. ED Course Physical exam and history were performed. Nursing notes, EMR, and Medication List were personally reviewed. Patient appears to have right knee pain that worsens with standing. X-ray and ultrasound were performed. X-ray does not show acute fracture or dislocation. Ultrasound is without evidence of DVT. Overall the patient appears well for discharge home. She will need to follow with orthopedics regarding her symptoms. The patient will be given a short course of steroids that she has evidently tolerated this well in the past. She was given a note for several days off work as well as a walker to assist with ambulation and prevent falling. She is to take every precaution to prevent falling as I feel she is at high risk for this. The patient was otherwise invited back to the ER with any new, worsening, or concerning symptoms. The chart was completed utilizing [employer] Voice Recognition Software. Grammatical errors, random word insertions, pronoun errors, and incomplete sentences are an occasional consequence of this system due to software limitations, ambient noise, and hardware issues. Any formal questions or concerns about the content, text, or information contained within the body of this dictation should be directly addressed to the provider for clarification. . Medical Decision Differential diagnosis includes, but is not limited to: Sprain, strain, fracture , dislocation, subluxation, contusion, arthritis, DVT, and others Impression Primary Impression: Leg pain, right Departure Information Dispostion Home / Self-Care Condition GOOD Prescriptions Methylprednisolone (MEDROL DOSEPAK) 4 Mg Coleman 1 PKT PO DAILY, #1 PKT Prov: Kaveh Busby PA-C 06/01/17 Referrals Dayne Wahl D.O. Forms HOME CARE DOCUMENTATION FORM, Work Instructions, Additional Instructions: Patient was seen and evaluated today in the emergency department fo medical care. Return to work on 06/05/2017. Please excuse. IMPORTANT VISIT INFORMATION Patient Instructions [facility] Additional Instructions You were seen and evaluated today on an emergency basis only. This is not a substitute for, or an effort to provide, complete comprehensive medical care. It is not possible to recognize and treat all injuries or illnesses in a single emergency department visit. For this reason it is recommended that you followup with [facility], Dr. Wahl's office, next week for a recheck. Take Medrol Dosepak as prescribed. Use your walker at all times to help prevent falling You are welcome to return to the emergency department anytime with new, worsening, or concerning symptoms. Work Instructions Additional Work Instructions: Patient was seen and evaluated today in the emergency department for medical care. Return to work on 06/05/2017. Please excuse.
== END 2017-06-02 00:20 | disposition home or self-care (01) ==
LOC: C.EDB 21:10 → C.EDD 06-02 00:20
DX: M25.561 Pain in right knee (principal); Z82.49 Family history of ischemic heart disease and other diseases of the circulatory system